=== PATIENT | male | born 1950 | race Hispanic/Latino ===

== ENCOUNTER 2018-07-27 05:40 | Day surgery (SDC) | payer MEDICARE, OTHER ==
[2015-03-20 08:48] VITALS: PULSE 99
[2018-07-25 13:56] VITALS: BMI 27.1
[2018-07-27] MEDS ORDERED: Lidocaine 2% Inj (20ml) ONE (06:57)
[2018-07-27] MEDS ORDERED: Iodixanol 320 MG/ML 100 ML BOTTLE IV ONE ×2 (06:58→08:40)
[2018-07-27] MEDS ORDERED: Iodixanol 320 MG/ML 200 ML BOTTLE IV ONE (06:58)
[2018-07-27] MEDS ORDERED: Iohexol 350mgl/ml 50 ML ONE (06:58)
[2018-07-27] MEDS ORDERED: Phenylephrine 10 mg/ml Inj ONE (06:59)
[2018-07-27] MEDS ORDERED: Nitroglycerin 50mg in D5W 0 MG/0 ML BOTTLE IV ONE (07:01)
[2018-07-27 07:21] LABS: BASO # 0.04 K/mm3 (0.0-2.0); BASO % 0.6 % (0.0-3.0); EOS # 0.5 (0.0-0.7); EOS % 6.8 % (1.5-5.0); GRAN # 3.85 (1.4-6.5); GRAN % 57.2 % (50.0-68.0); HEMOGLOBIN 16.6 g/dL (14.0-18.0); LYMPH # 1.9 (1.2-3.4); LYMPH % 28.4 % (22.0-35.0); MEAN CELL VOLUME 89.6 fl (80.0-105.0); MEAN CORPUSCULAR HEMOGLOBIN 29.7 pg (25.0-35.0); MEAN CORPUSCULAR HGB CONC 33.2 g/dl (31.0-37.0); MEAN PLATELET VOLUME 9.6 fl (7.0-11.0); MONO # 0.5 (0.1-0.6); RBC 5.58 10^6/uL (3.5-6.1); RED CELL DISTRIBUTION WIDTH 12.6 % (11.5-14.5); WHITE BLOOD COUNT 6.7 10^3/uL (4.5-11.0)
[2018-07-27 07:29] LABS: INR 1.04; PARTIAL THROMBOPLASTIN TIME 28.9 Seconds (25.1-36.5)
[2018-07-27 07:31] LABS: BLOOD UREA NITROGEN 17 mg/dL (7-21); CALCIUM 9.7 mg/dL (8.4-10.5); GFR NON-AFRICAN AMERICAN > 60
[2018-07-27] MEDS ORDERED: Midazolam 2 MG/2 ML VIAL ONE ×3 (07:53→08:40)
[2018-07-27] MEDS ORDERED: Sodium Chloride 0.9% 1,000 ML IV SCH (09:15)
--- NOTE | 2018-07-27 13:34 | CARDCATH ---
PROCEDURE DATE: 07/27/2018 HISTORY The patient is a 68-year-old male with documented coronary artery disease, who presents with an abnormal stress test. The stress test reported that the ejection fraction had dropped by 20%. He currently has had a angioplasty in 2013 as well as having issues related to paroxysmal atrial fibrillation, hypertension and hypercholesterolemia. Because of this, cardiac catheterization was recommended. PROCEDURE: Left heart catheterization with coronary arteriography and left ventriculogram followed by PTCA and stent of an obtuse marginal branch of the circumflex artery. The right femoral artery was cannulated with a 6-Citizen Of [place] sheath. There were no complications. I performed moderate sedation which included the presence of an independent trained observer that assisted in monitoring the patient's level of consciousness and physiologic status. After administration of Versed and fentanyl, my intra service time was 45 minutes. The findings on catheterization revealed a left ventricle that contracted normally. Estimated ejection fraction estimated ejection fraction is 55-60%. His coronary anatomy revealed a right dominant circulation. The RCA revealed diffuse atherosclerosis with a 50% stenosis in the midportion of the RCA. The left main artery was unremarkable. The LAD and diagonal vessels revealed intimal irregularities without critical lesions. The circumflex artery revealed a patent stent in the AV groove branch of the circumflex artery. At the takeoff of the obtuse marginal branch, there is a 70-80% stenoses noted. The patient was started on intravenous Angiomax under fluoroscopic guide, the guiding catheter was placed in the ostium of the left main artery. An 0.014 ATW wire was used to cross the critical lesion in the ostium of the OM. A 2.5 balloon was utilized to dilate the lesion x2. Repeat coronary arteriography revealed an excellent result with residual 10% stenosis and WARD III flow. No stent was deployed. Angio-Seal was used to close the femoral artery site. The patient tolerated the procedure well. In summary, the procedure was successful for PTCA of a critical lesion in the ostium of the obtuse marginal branch of the circumflex artery. Catheterization revealed a patent stent in the AV groove branch of the circumflex artery. LV evaluation revealed an ejection fraction of 55-60% which is much better than what was reported on the stress test. Given these findings, the patient will need to remain on aspirin indefinitely and undergo a cardiac risk reduction program. Bryan Feldman MD
--- NOTE | 2018-07-27 21:44 | CARD ---
APPROVED REPORT Date of service: 07/27/2018 EKG Measurement Heart [id number] 148P70 [id number] <Conclusion> Normal sinus rhythm Incomplete right bundle branch block Left anterior fascicular block Nonspecific ST and T wave abnormality Abnormal ECG
[2018-07-27 23:35] VITALS: O2SAT 96
[2018-07-28 06:44] VITALS: BP 132/73; PULSE 68; RESP 18; TEMP 98.5
[2018-07-28 07:14] LABS: BASO # 0.04 K/mm3 (0.0-2.0); BASO % 0.8 % (0.0-3.0); EOS # 0.3 (0.0-0.7); GRAN # 2.62 (1.4-6.5); GRAN % 53.9 % (50.0-68.0); HEMOGLOBIN 14.2 g/dL (14.0-18.0); LYMPH # 1.6 (1.2-3.4); LYMPH % 32.3 % (22.0-35.0); MEAN CELL VOLUME 88.7 fl (80.0-105.0); MEAN CORPUSCULAR HEMOGLOBIN 29.2 pg (25.0-35.0); MEAN CORPUSCULAR HGB CONC 32.9 g/dl (31.0-37.0); MEAN PLATELET VOLUME 9.1 fl (7.0-11.0); MONO # 0.3 (0.1-0.6); RBC 4.87 10^6/uL (3.5-6.1); RED CELL DISTRIBUTION WIDTH 12.6 % (11.5-14.5); WHITE BLOOD COUNT 4.9 10^3/uL (4.5-11.0)
[2018-07-28 07:40] LABS: BLOOD UREA NITROGEN 13 mg/dL (7-21); CALCIUM 8.7 mg/dL (8.4-10.5); GFR NON-AFRICAN AMERICAN > 60
--- NOTE | 2018-07-28 10:43 | PN ---
CARDIOLOGY FOLLOWUP DATE: 07/28/2018 SUBJECTIVE: The patient is ambulating without symptoms. PHYSICAL EXAMINATION: VITAL SIGNS: Blood pressure is 132/73 and heart rates in the 60s, normal sinus rhythm. NECK: Negative JVD. LUNGS: Without rales. HEART: S1 and S2. EXTREMITIES: Without edema. LABORATORY DATA: Hemoglobin is 14.2. Chemistries, BUN and creatinine unremarkable. IMPRESSION: 1. Stable post percutaneous transluminal coronary angioplasty of the obtuse marginal branch. 2. History of multivessel coronary artery disease. 3. Hypercholesterolemia. 4. History of paroxysmal atrial fibrillation. Given these findings, the patient is doing well. The patient can be discharged today on his present medications. Followup and instructions given to the patient. Bryan Feldman MD
--- NOTE | 2018-07-28 19:02 | CARD ---
APPROVED REPORT Date of service: 07/28/2018 EKG Measurement Heart [id number] <Conclusion> Sinus rhythm with premature atrial complexes Left anterior fascicular block Nonspecific ST and T wave abnormality Abnormal ECG
== END 2018-07-28 11:11 | disposition home or self-care (01) ==
LOC: SDSVAS 05:40 → 2RSO 09:29 → SDSVAS 07-28 11:11
PROVIDERS: ATTEND Internal Medicine
DX: I25.10 Atherosclerotic heart disease of native coronary artery without angina pectoris (principal); I48.0 Paroxysmal atrial fibrillation; E78.00 Pure hypercholesterolemia, unspecified; I10 Essential (primary) hypertension; Z95.5 Presence of coronary angioplasty implant and graft
CPT/HCPCS: 36415; 80048; 85025; 85610; 85730; 86850; 86900; 92920; 93005; 93458; 99152; 99153; C1725; C1760; C1769 ×2; C1887; C2629; J0583; J1644; J2250; J3010; J7030; J7040; Q9966; Q9967 ×2

== ENCOUNTER 2018-12-31 00:56 | Observation (INO) | payer MEDICARE, OTHER ==
[2018-12-31 00:56] VITALS: PULSE 99
--- NOTE | 2018-12-31 01:34 | ED PDOC ---
Arrival/HPI - General Chief Complaint: Lower Extremity Problem/Injury Time Seen by Provider: 12/31/18 01:10 Historian: Patient - History of Present Illness Narrative History of Present Illness (Text): 12/31/18 01:25 Dutch Mendoza is a 68 year old male, whose past medical history includes hypertension, CAD, CHF,cardiac stents and CVA, who presents to the ED complaining of leg pain. Patient states he has been experiencing pain radiating from his left foot up to his left knee at times to the thigh worsening over the past 5 days.No history of any trauma.Patient states he is able to ambulate.Pain appears some what better with ambulation.States his leg at times feels cool then warm. Patient denies any fever, chills, chest pain, shortness of breath, nausea, vomiting, diarrhea, urinary symptoms, back pain, neck pain, headache, dizziness, or any other complaints. Symptom Onset: Gradual Symptom Course: Unchanged Activities at Onset: Light Context: Home Past Medical History - Provider Review Nursing Documentation Reviewed: Yes Primary Care Provider: Ariel Valencia - Infectious Disease Hx of Infectious Diseases: None - Tetanus Immunization Tetanus Immunization: Unknown - Cardiac Hx Pacemaker: No - Pulmonary Other/Comment: former smoker - Neurological Hx Paralysis: No - Hematological/Oncological Hx Blood Transfusions: No - Integumentary Other/Comment: swollen testicles red had large blister that broke and is having large amount bloody drainage today - Musculoskeletal/Rheumatological Hx Musculoskeletal Disorders: No - Genitourinary/Gynecological Hx Reproductive Disorders: No - Psychiatric Hx Emotional Abuse: No Hx Physical Abuse: No Hx Substance Use: No - Surgical History Hx Cardiac Catheterization: Yes Hx Coronary Stent: Yes Other/Comment: bilat leg stent (x2) - Anesthesia Hx Anesthesia Reactions: No Hx Malignant Hyperthermia: No - Suicidal Assessment Feels Threatened In Home Enviroment: No Family/Social History - Physician Review Nursing Documentation Reviewed: Yes Family/Social History: Unknown Family HX Smoking Status: Former Smoker Hx Alcohol Use: Yes (ON OCCASION) Hx Substance Use: No Hx Substance Use Treatment: No Allergies/Home Meds Allergies/Adverse Reactions: Allergies No Known Allergies Allergy (Verified 12/31/18 01:08) Home Medications: Home Meds Medication Instructions Recorded Confirmed Finasteride 5 mg PO DAILY 03/06/14 12/31/18 Tamsulosin [Flomax] 0.4 mg PO DAILY 03/06/14 12/31/18 Aspirin [Ecotrin] 81 mg PO DAILY 07/12/17 12/31/18 Rosuvastatin Calcium [Crestor] 5 mg PO DAILY 07/12/17 12/31/18 Sotalol [Betapace] 80 mg PO BID 07/12/17 12/31/18 Review of Systems - Physician Review All systems were reviewed & negative as marked: Yes - Review of Systems Constitutional: Normal. absent: Fevers Eyes: Normal ENT: Normal Respiratory: Normal. absent: SOB, Cough Cardiovascular: Normal. absent: Chest Pain Gastrointestinal: Normal. absent: Abdominal Pain, Vomiting Genitourinary Male: Normal Musculoskeletal: Other (+left leg pain). absent: Back Pain, Neck Pain Skin: Normal. absent: Rash Neurological: Normal. absent: Headache, Dizziness Endocrine: Normal Hemo/Lymphatic: Normal Psychiatric: Normal Physical Exam Vital Signs Reviewed: Yes Temperature: Afebrile Blood Pressure: Normal Pulse: Regular Respiratory Rate: Normal Appearance: Positive for: Well-Appearing, Non-Toxic, Comfortable Pain Distress: None Mental Status: Positive for: Alert and Oriented X 3 - Systems Exam Head: Present: Atraumatic, Normocephalic Pupils: Present: PERRL Extroacular Muscles: Present: EOMI Conjunctiva: Present: Normal Mouth: Present: Moist Mucous Membranes Neck: Present: Normal Range of Motion Respiratory/Chest: Present: Clear to Auscultation, Good Air Exchange. No: R espiratory Distress, Accessory Muscle Use Cardiovascular: Present: Regular Rate and Rhythm, Normal S1, S2. No: Murmurs Abdomen: No: Tenderness, Distention, Peritoneal Signs Back: Present: Normal Inspection Upper Extremity: Present: Normal Inspection. No: Cyanosis, Edema Lower Extremity: Present: Normal Inspection, NORMAL PULSES (slightly decreased DP/PT left leg), Normal ROM, Neurovascularly Intact, Capillary Refill < 2 s. No: Edema, Cyanosis, Tenderness, Swelling, Erythema, Deformity, Temperature Abnormalties Neurological: Present: GCS=15, CN II-XII Intact, Speech Normal, Motor Func Grossly Intact, Normal Sensory Function Skin: Present: Warm, Dry, Normal Color. No: Rashes Psychiatric: Present: Alert, Oriented x 3, Normal Insight, Normal Concentration Medical Decision Making ED Course and Treatment: 12/31/18 01:25 Impression: 68 year old male complaining of left leg pain, radiating from his left foot up his knee. Differential Diagnosis included but are not limited to: PVD vs. claudication Plan: -- US Duplex Lower Extremities -- XR Left Ankle -- XR Left Knee -- Toradol -- Ultram -- Reassess and disposition Progress Notes: 12/31/18 03:13 Reviewed radiology, XR Left Ankle shows no acute processes. XR Left Knee shows no acute processes. US Duplex Lower Extremities preliminary read negative for DVT. 12/31/18 04:[address] Valencia, who is aware and agrees with plan. Accepts pt in to his service. Pt will go to [facility] observation for intractable leg pain. Requests Dr. Tejas Salas on consult. - RAD Interpretation Cyanide Pot Tender: ED Physician - Scribe Statement The provider has reviewed the documentation as recorded by the Scribe Aliya Weiss Provider Scribe Attestation: All medical record entries made by the Scribe were at my direction and personally dictated by me. I have reviewed the chart and agree that the record accurately reflects my personal performance of the history, physical exam, medical decision making, and the department course for this patient. I have also personally directed, reviewed, and agree with the discharge instructions and disposition. Disposition/Present on Arrival - Present on Arrival Any Indicators Present on Arrival: No History of DVT/PE: No History of Uncontrolled Diabetes: No Urinary Catheter: No History of Decub. Ulcer: No History Surgical Site Infection Following: None - Disposition Have Diagnosis and Disposition been Completed?: Yes Diagnosis: Pain of left lower extremity, Intractable pain Disposition: HOSPITALIZED Disposition Time: 04:50 Patient Plan: Observation Patient Problems: Current Active Problems Problem Status Onset Intractable pain Acute Pain of left lower extremity Acute Condition: STABLE
[2018-12-31 04:12] LABS: ALB/GLOB RATIO 1.3 (1.1-1.8); ALBUMIN 4.2 g/dL (3.0-4.8); ALT/SGPT 33 U/L (7-56); AST/SGOT 25 U/L (17-59); BLOOD UREA NITROGEN 21 mg/dL (7-21); CALCIUM 9.5 mg/dL (8.4-10.5); GFR NON-AFRICAN AMERICAN > 60
[2018-12-31] MEDS ORDERED: Morphine 2 mg/ml ISec IVP STA (04:16)
[2018-12-31 04:18] LABS: INR 1.07; PARTIAL THROMBOPLASTIN TIME 32.9 Seconds (26.9-38.3); PROTHROMBIN TIME 11.9 SECONDS (9.4-12.5)
[2018-12-31 04:20] LABS: HEMOGLOBIN 15.4 g/dL (14.0-18.0); MEAN CELL VOLUME 89.5 fl (80.0-105.0); MEAN CORPUSCULAR HGB CONC 33.6 g/dl (31.0-37.0); RBC 5.13 10^6/uL (3.5-6.1); RED CELL DISTRIBUTION WIDTH 13.1 % (11.5-14.5); WHITE BLOOD COUNT 6.3 10^3/uL (4.5-11.0)
[2018-12-31 04:21] LABS: MEAN PLATELET VOLUME 9.2 fl (7.0-11.0)
[2018-12-31 06:57] VITALS: BMI 27.8
[2018-12-31] MEDS: Oxycodone/Acetaminophen 5/325 mg Tab PO PRN ×2 (08:30→12:49)
--- NOTE | 2018-12-31 10:20 | RAD ---
Date of service: 12/31/2018 PROCEDURE: Left Ankle Radiographs. HISTORY: pain COMPARISON: None available. TECHNIQUE: 3 views obtained. FINDINGS: BONES: Normal. No fracture. JOINTS: Normal. No osteoarthritis. Ankle mortise maintained. Talar dome intact SOFT TISSUES: Normal. OTHER FINDINGS: None. IMPRESSION: Normal left ankle radiographs.
--- NOTE | 2018-12-31 10:24 | RAD ---
Date of service: 12/31/2018 PROCEDURE: Left Knee Radiographs. HISTORY: Pain. COMPARISON: None. TECHNIQUE: 3 views obtained. FINDINGS: BONES: Normal. No fracture. JOINTS: Normal. No osteoarthritis. JOINT EFFUSION: None. OTHER FINDINGS: None. IMPRESSION: No acute findings
--- NOTE | 2018-12-31 10:50 | RAD ---
Date of service: 12/31/2018 PROCEDURE: Radiographs of the Lumbar Spine. HISTORY: left lumbar radiculopathy COMPARISON: No prior. TECHNIQUE: Two views obtained. FINDINGS: BONES: Normal alignment. No listhesis. No fracture. DISC SPACES: Disc degeneration at L4-5 and L5-S1 OTHER FINDINGS: None. IMPRESSION: Disc degeneration at L4-5 and L5-S1
[2018-12-31] MEDS: Pantoprazole 40 mg EC Tab PO SCH (11:09)
--- NOTE | 2018-12-31 13:07 | MRI ---
Date of service: 12/31/2018 PROCEDURE: MR LUMBAR SPINE WITHOUT CONTRAST HISTORY: left lumbar radicular pain COMPARISON: None available. TECHNIQUE: Multiecho multiplanar sequences were performed through the lumbar spine without the use of intravenous contrast. FINDINGS: Normal lumbar lordosis. Vertebral body heights are preserved. Marrow signal unremarkable. Conus medullaris unremarkable at the level of L1 Paraspinal soft tissues are unremarkable. T12-L1: No disc herniation, spinal canal stenosis or neural foraminal narrowing. L1-2: No disc herniation, spinal canal stenosis or neural foraminal narrowing. Mild facet arthropathy L2-3: No disc herniation, spinal canal stenosis or neural foraminal narrowing. Mild facet arthropathy L3-4: Desiccation of the disc material, mild disc bulge and moderate facet arthropathy. No stenosis L4-5: Large disc bulge. Loss of disc height. Moderate facet arthropathy. L5-S1: Disc degeneration with loss of disc height and mild disc bulge. Mild foraminal stenosis. Moderate facet arthropathy OTHER FINDINGS: None. IMPRESSION: Multilevel degenerative changes. No significant central stenosis. No evidence of compression fracture
[2018-12-31 16:21] VITALS: BP 136/82; PULSE 60; RESP 20; TEMP 98; O2SAT 95
--- NOTE | 2018-12-31 18:10 | CARD ---
APPROVED REPORT Date of service: 12/31/2018 EKG Measurement Heart [id number] 112P8 [id number] <Conclusion> Sinus bradycardia Incomplete right bundle branch block Left anterior fascicular block Nonspecific ST and T wave abnormality Abnormal ECG
--- NOTE | 2019-01-01 03:22 | HP ---
DATE OF EXAM: 12/31/2018 CHIEF COMPLAINT: Pain in the left leg. HISTORY OF PRESENT ILLNESS: This is a 68-year-old man who started to have pain in the left leg approximately 1 week ago, pain was on and off as it waxed wane through the course of the week. He cannot report any reproducible events that could have made the pain worse or made the pain better. It occurred while standing and walking, it occurred while at rest in bed and turning over. The pain was worse [id number] to the top of the foot on the lateral aspect of the leg going to the dorsum of the foot. He did not notice any discoloration of the foot. He says sometimes his feet feel cold, but the pain is intense prompting him to come to the emergency room early Tuesday morning. In the emergency room, his history was reviewed and because of history of stroke as well as a history of peripheral vascular disease, there was a great concern over occlusion of the stent in his leg, therefore arrangements were made for him to be admitted and consult was called with Dr. Bryan Salas. PAST MEDICAL HISTORY: Significant for BPH, peripheral vascular disease and stent in his femoral arteries which the patient reports to be in both femoral arteries. There is also a distant history of AFib according to the old records, I only known this patient from a hospitalization in 2015 for orchitis and scrotal infection. SOCIAL HISTORY The patient is a former smoker, occasional drinks alcohol. Drinks coffee everyday. He is , with grown children. ALLERGIES: HE HAS NO KNOWN ALLERGIES TO MEDICATIONS. HOME MEDICATIONS: Include aspirin, Crestor, finasteride, tamsulosin, Plavix, and sotalol 80 mg twice a day. REVIEW OF SYSTEMS: Otherwise unremarkable on multiple points. PHYSICAL EXAMINATION: GENERAL: The patient was seen this Tuesday in room 572, bed 1. He is resting comfortably in bed, awake, alert, clear, and in good spirits. He speaks primarily U[place] but I am able to understand him well as he can understand and speak rather well [place]. HEENT AND NECK: Head and neck unremarkable. Conjunctivae are pink. Mucous membranes are moist. Neck is supple without masses. No JVD. No carotid bruits. Thyroid is not palpable. LUNGS: Show good aeration right and left. HEART: Regular. There is no irregularities to his beat. There is no ectopy noted. ABDOMEN: Soft and nontender. EXTREMITIES: Showed no edema. There are easily palpable dorsalis pedis and posterior tibial pulses on both right and left lower extremities. The toes are warm. There is good capillary refill. There is no purpura, discoloration, and mottling. There is no coolness to touch, again the toes are warm. Range of motion of the feet and ankle and knees are good. Rotation of the hips are normal with hips flexed, external rotation is acceptable. There is no straight leg raising pain. Hamstrings are very tight, especially the left leg. Limiting the patient's flexion at the hip. IMPRESSION: 1. A 68-year-old man with a history of coronary artery disease and peripheral vascular disease who comes to the emergency room early Tuesday morning hours with severe left leg pain and a great concern for peripheral vascular disease with possible worsening of his stents. Due to the good pulses present, I feel this is less likely and suspect. 2. Sciatica, low back pain. 3. Atherosclerotic cerebrovascular disease. 4. Benign prostatic hyperplasia. 5. . PLAN: We will arrange for the patient to be out of bed and ambulate. We will ask physical therapy to see the patient if necessary, but I think he is adequately ambulating at this time relatively pain free. I will add some prednisone as a strong anti-inflammatory for low back pain, sciatica, left lumbar radiculopathy pain. We will get x-ray of the LS spine as well as an MRI of the LS spine. X-rays of the knees and ankles have already been done. We will see the patient again tomorrow. I suspect vascular consultation with Dr. Bryan Salas, if it collaborates with my opinion, our diagnosis would be that this pain is stemming from his low back and it is a radicular type pain and will be discharged to home tomorrow after overnight observation on anti- inflammatory medications. Pavel Valencia MD MTDJacquelyn
[2019-01-01] MEDS: Pantoprazole 40 mg EC Tab PO SCH (08:51)
--- NOTE | 2019-01-01 11:07 | US ---
PROCEDURE: Left lower extremity venous US HISTORY: Leg pain and swelling. Evaluate for DVT. PHYSICIAN(S): Bryan Salas MD. TECHNIQUE: Duplex sonography and color-flow Doppler with graded compression were used to evaluate the deep venous system of the left lower extremity. FINDINGS: The visualized deep venous system of the left lower extremity is sonographically normal and compressible. Normal wave forms and augmentation are seen. There is no sonographic evidence for deep venous thrombosis in the visualized segments of the left lower extremity. IMPRESSION: 1. No sonographic evidence for deep venous thrombosis in the visualized segments of the left lower extremity.
--- NOTE | 2019-01-02 03:10 | DS ---
The patient is an 89-year-old male with a history of benign prostatic hypertrophy, peripheral vascular disease, status post stenting of bilateral femoral arteries, distant history of atrial fibrillation, distant history of orchitis, and scrotal infection, who presented to the emergency room yesterday complaining of severe pain in the lateral aspect of his left lower extremity. When seen today, he is lying in bed. His is present at bedside. There is no swelling, erythema, no superficial lesions on his left lower leg. Range of motion and the hip, knee, and ankle is very good. There is minimal tenderness on palpation of the lumbar vertebrae. To date MRI of the LS spine has showed multilevel degenerative disease. X-rays of the left ankle and knee were negative. EKG showed an incomplete right bundle-branch block and left anterior fascicular block. Yesterday's laboratory studies, CBC, and chemistries are all normal. His vital signs are stable. The patient is afebrile. Discussed the concept of sciatica with the patient and his . I explained that his symptoms are coming from the degenerative disease in the lumbar spine. I will be discharging the patient to home. I will be calling his local [facility] for nonsteroidal anti-inflammatory medications as well as muscle relaxers. He will be seen in the office later on this week. We are considering physical therapy for sciatica. FINAL DIAGNOSES: 1. Sciatica. 2. History of cerebrovascular accident. 3. History of atrial fibrillation. 4. Peripheral vascular disease. 5. Benign prostatic hypertrophy. Ariel Valencia MD
[2019-01-02] MEDS ORDERED: Non Formulary Medication (Rosuvastatin Calcium [Crestor] 5 MG) PO SCH (10:00)
== END 2019-01-01 13:58 | disposition home or self-care (01) ==
LOC: ED 00:56 → ERH 04:52 → 5RSO 05:38
PROVIDERS: ADMIT Internal Medicine; ATTEND Internal Medicine
DX: M54.40 Lumbago with sciatica, unspecified side (principal); I48.91 Unspecified atrial fibrillation; N40.0 Benign prostatic hyperplasia without lower urinary tract symptoms; I11.0 Hypertensive heart disease with heart failure; I50.9 Heart failure, unspecified; I25.10 Atherosclerotic heart disease of native coronary artery without angina pectoris; I73.9 Peripheral vascular disease, unspecified; Z86.73 Personal history of transient ischemic attack (TIA), and cerebral infarction without residual deficits; Z95.5 Presence of coronary angioplasty implant and graft; Z95.820 Peripheral vascular angioplasty status with implants and grafts; Z87.891 Personal history of nicotine dependence; I67.2 Cerebral atherosclerosis
CPT/HCPCS: 72100; 72148; 73562; 73610; 80053; 85027; 85610; 85730; 93005; 93971; 96372; 96374; 99285; G0378; J1885; J2270